=== PATIENT | female | born 1980 | race Two or more races ===

== ENCOUNTER 2020-02-12 07:55 | Inpatient (IN) | payer OTHER ==
[2020-02-09 12:16] VITALS: BMI 21.6
[2020-02-12] MEDS ORDERED: ROCURONIUM BROMIDE 50 MG/5 ML SYRINGE ONE (09:32)
[2020-02-12] MEDS ORDERED: fentaNYL CITRATE 250 MCG/5 ML VIAL ONE (09:32)
[2020-02-12] MEDS ORDERED: MIDAZOLAM HCL 2 MG/2 ML SINGLE DOSE VIAL ONE ×2 (09:32)
[2020-02-12] MEDS ORDERED: PROPOFOL 20 ML ONE (09:32)
[2020-02-12] MEDS ORDERED: DEXAMETHASONE SOD PHOSPHATE/PF 10 MG/ML SDV ONE (09:34)
--- NOTE | 2020-02-12 09:46 | HP ---
Admitting History and Physical - Admission Chief Complaint: HMB/DUB History of Present Illness: 39yo here for MASTER, salpingectomy H/O HMB, diagnosed with uterine fibroids this year Given option of hormonal regulation, [place] and definitive treatment with hysterectomy (as she desires no more children). Pt declined non definitive treatments and asked for hysterectomy History Source: Patient - Past Medical History STONE UNLOADER: No: Alzheimer's, CVA, Dementia, Migraine, Multiple Sclerosis, Peripheral Neuropathy, Parkinson's, Seizure, Syncope, TIA, Vertigo, Other Cardiovascular: No: AFIB, Aneurysm, Aortic Insufficiency, Aortic Stenosis, CAD, CHF, Deep Vein Thrombosis, HTN, Hyperlipdemia, MO, Mitral Insufficiency, Mitral Stenosis, Murmur, Pulmonary Hypertension, Other Pulmonary: No: Asthma, Bronchitis, Cancer, COPD, O2 Dependent, Pneumonia, Previously Intubated, Pulmonary Embolus, Pulmonary Fibrosis, Sleep Apnea, Other Gastrointestinal: No: Ascites, Cancer, Constipation, Crohn's Disease, Diverticulitis, Diverticulosis, Esophageal Varices, Gastritis, GERD, GI Bleed, Hemorrhoids, Hiatal Hernia, Inflamatory Bowel Disease, Irritable Bowel Disease, Pancreatitis, Peptic Ulcer Disease, Ulcerative Colitis, Other Hepatobiliary: No: Cirrhosis, Cholelithiasis, Cholecystitis, Choledocholithiasis, Hepatitis A, Hepatitis B, Hepatitis C, Other Renal/: No: Renal Failure, Renal Inusuff, BPH, Cancer, Hematuria, Hemodialysis, Neurogenic Bladder, Renal Calculi, UTI, Other Reproductive: No: Ectopic , Endometriosis, Fibroids, PID, Polycystic Ovary Syndrome, Postmenopausal, Other ...LMP: 01/24/20 ...: No Heme/Onc: Yes: Anemia Infectious Disease: No: AIDS, C-Diff, Herpes Zoster, HIV, MRSA, STD's, Tuberculosis, VREF, Other Psych: No: Addictions, Anxiety, Bipolar, Depression, Panic, Psychosis, Schizophrenia, Other Musculoskeletal: No: Bursitis, Chronic low back pain, Hemiparesis, Hemiplegia, Osteoarthritis, Paraplegia, Other Rheumatology: No: Fibromyalgia, Gout, Lupus, Rheumatoid Arthritis, Sarcoidosis, Vasculitis, Other ENT: No: Allergic Rhinitis, Sinusitis, Other Endocrine: No: [place]'s Disease, [place]'s Disease, Diabetes Insipidus, Diabetes Mellitus, Hyperparathyroidism, Hyperthyroidism, Hypothyroidism, Osteopenia, SIADH, Other Dermatology: No: Basal Cell, Cellulitis, Eczema, Melanoma, Psoriasis, Squamous Cell, Other - Past Surgical History Past Surgical History: Yes: - Smoking History Smoking history: Never smoked Have you smoked in the past 12 months: No - Alcohol/Substance Use Hx Alcohol Use: No History of Substance Use: reports: None - Social History Usual Living Arrangement: Yes: Alone Do you think of yourself as: Straight/Heterosexual ADL: Independent History of Recent Travel: No Home Medications - Allergies Allergies/Adverse Reactions: Allergies Allergy/AdvReac Type Severity Reaction Status Date / Time No Known Allergies Allergy Verified 02/12/20 08:30 - Home Medications Home Medications: Ambulatory Orders Ascorbic Acid [Vitamin C] 500 mg PO DAILY 02/09/20 Calcium Carbonate [Calcium] 500 mg PO DAILY 02/09/20 Cholecalciferol (Vitamin D3) [Vitamin D3 -] 400 unit PO DAILY 02/09/20 Glucosa García 2Kcl/Chondroitin García [Glucosamine & Chondroitin Cap] 1 each PO DAILY 02/09/20 Review of Systems - Review of Systems Constitutional: reports: No Symptoms Cardiovascular: reports: No Symptoms Respiratory: reports: No Symptoms Gastrointestinal: reports: No Symptoms Physical Examination Vital Signs: Vital Signs Temperature 97.8 F 02/12/20 08:29 Pulse Rate 94 H 02/12/20 08:29 Respiratory Rate 20 02/12/20 08:29 Blood Pressure 131/64 02/12/20 08:29 O2 Sat by Pulse Oximetry (%) 100 02/12/20 08:29 Constitutional: Yes: Well Nourished, No Distress, Calm Cardiovascular: Yes: WNL, Regular Rate and Rhythm Respiratory: Yes: WNL, Regular, CTA Bilaterally Gastrointestinal: Yes: WNL, Normal Bowel Sounds Renal/: Yes: Other (Enlarged uterus 18wk size, midlie and mobile) Edema: No Imaging - Results Ultrasound: Report Reviewed Assessment/Plan 39yo here with HMB/DUB and uterine fibroids Admit NPO, IVFs Cifuentes Ancef Risks reviewed with patient including bleeding, infection, and injury to bladder/bowel/ureters, ovaries. All questions answered in Georgian. Consents signed Proceed to OR for MASTER, b/l salpingectomy Jim Brown MD
[2020-02-12] MEDS ORDERED: ceFAZolin SODIUM 1 GM VIAL ONE (10:13)
[2020-02-12] MEDS ORDERED: DEXAMETHASONE SOD PHOSPHATE 4 MG/1 ML VIAL ONE (10:13)
[2020-02-12] MEDS ORDERED: EPHEDRINE SULFATE/0.9% NACL/PF 50 MG/10 ML SYRINGE NR ONE (11:12)
[2020-02-12] MEDS ORDERED: ceFAZolin SODIUM 1 GM VIAL IVPB ONE (11:44)
[2020-02-12] MEDS ORDERED: KETOROLAC TROMETHAMINE 30 MG/1 ML VIAL ONE (11:53)
[2020-02-12] MEDS ORDERED: NEOSTIGMINE METHYLSULFATE 0.5 MG/ML - 10 ML MDV ONE (11:55)
[2020-02-12] MEDS ORDERED: GLYCOPYRROLATE 0.2 MG/1 ML VIAL ONE (11:56)
[2020-02-12] MEDS ORDERED: BENZOIN/ALOE VERA/STORAX/TOLU 58 ML BOTTLE ONE (12:02)
--- NOTE | 2020-02-12 12:40 | OP ---
Operative Note - Note: Operative Date: 02/12/20 Pre-Operative Diagnosis: Heavy Menstrual Bleeding/DUB, Uterine Fibroids Operation: Total Abdominal Hysterectomy, Bilateral Salpingectomy Findings: Enlarged fibroid uterus, normal tubal segments bilaterally with small paratubal cyst on R fallopian tube, normal ovaries bilaterally Surgeon: Ana Luisa Brown Leak Patcher: Samir Hendrickson Anesthesiologist/BUSINESS DEAN: Deepthi Lemon Anesthesia: General Specimens Removed: Fibroid uterus and cervix, B/L fallopian tube segments Estimated Blood Loss (mls): 200 Drains, Volume Out (mls): 650 (clear urine) Operative Report Dictated: Yes
[2020-02-12] MEDS ORDERED: oxyCODONE HCL 5 MG TABLET PO PRN (12:41)
[2020-02-12] MEDS ORDERED: ACETAMINOPHEN 325 MG TABLET (FP) PO PRN (12:41)
[2020-02-12] MEDS ORDERED: ONDANSETRON 4 MG/2 ML VIAL IVPUSH PRN (12:47)
[2020-02-12] MEDS ORDERED: HYDROmorphone *PCA* 10MG/50ML DISP.SYRIN PCA SCH (13:00)
[2020-02-12] MEDS ORDERED: LACTATED RINGERS SOLUTION 1,000 ML IV SCH (13:00)
[2020-02-12] MEDS ORDERED: HYDROmorphone *PCA* 10MG/50ML DISP.SYRIN PCA ONE (13:15)
[2020-02-13 08:00] LABS: BASO % 0.1 % (0-2.0); HEMATOCRIT 28.9 % (32.4-45.2); HEMOGLOBIN 9.7 GM/dL (10.7-15.3); LYMPH % 6.6 % (8-40); MCH 26.3 pg (25.7-33.7); MCHC 33.6 g/dl (32.0-36.0); MEAN CELL VOLUME 78.2 fl (80-96); MEAN PLT VOLUME 9.3 fl (7.5-11.1); MONO % 8.2 % (3.8-10.2); NEUT % 85.1 % (42.8-82.8); PLATELET COUNT 299 K/MM3 (134-434); RDW 17.2 % (11.6-15.6); WHITE BLOOD COUNT 13.8 K/mm3 (4.0-10.0)
[2020-02-13] MEDS ORDERED: PCA PUMP NR ONE (08:54)
--- NOTE | 2020-02-13 09:39 | PN ---
Progress Note, Physician History of Present Illness: Out of bed in chair, pain controlled, no nausea, no vomiting, beal is out. Post-op instructions reviewed. - Current Medication List Current Medications: Active Medications Acetaminophen (Tylenol -) 650 mg PO Q6H PRN PRN Reason: FEVER Fentanyl (Sublimaze Injection -) 50 mcg IVPUSH [id number] PRN PRN Reason: PAIN-PACU ORDER X 4 DOSES ONLY Ibuprofen (Motrin -) 600 mg PO Q6H PRN PRN Reason: PAIN 1-3 Ondansetron HCl (Zofran Injection) 4 mg IVPUSH Q6H PRN PRN Reason: NAUSEA AND/OR VOMITING Oxycodone HCl (Roxicodone -) 5 mg PO Q6H PRN PRN Reason: PAIN LEVEL 7 - 10 - Objective Vital Signs: Vital Signs Temperature 100.2 F H 02/13/20 05:52 Pulse Rate 111 H 02/13/20 05:52 Respiratory Rate 20 02/13/20 05:52 Blood Pressure 112/55 L 02/13/20 05:52 O2 Sat by Pulse Oximetry (%) 99 02/13/20 05:52 Constitutional: Yes: Well Nourished, No Distress HENT: Yes: Atraumatic Neck: Yes: Supple Cardiovascular: Yes: Regular Rate and Rhythm Respiratory: Yes: Regular Gastrointestinal: Yes: Normal Bowel Sounds, Soft ...Rectal Exam: Yes: Other Genitourinary: Yes: Other Musculoskeletal: Yes: WNL Extremities: Yes: WNL Edema: Yes Edema: LLE: Trace, RLE: Trace Integumentary: Yes: WNL Wound/Incision: Yes: Clean/Dry, Well Approximated, Sutures Intact Neurological: Yes: Alert, Oriented ...Motor Strength: WNL Psychiatric: Yes: Alert, Oriented Labs: CBC, BMP 02/13/20 07:13 Problem List - Problems (1) Leiomyoma Code(s): D21.9 - BENIGN NEOPLASM OF CONNECTIVE AND OTHER SOFT TISSUE, UNSP Assessment/Plan 39 y/o on POD #1 S/P TAHBS in stable condition. 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 Intra-op findings discussed with patient. -Encourage ambulation -PO pain control -Continue post-op care
[2020-02-13] MEDS: oxyCODONE HCL 5 MG TABLET PO PRN ×3 (10:02→22:36)
--- NOTE | 2020-02-13 11:00 | PN ---
Progress Note (short form) - Note Progress Note: Anesthesia postop note 39 y/o F s/p GA/TAP/JIG HAND for abdominal hysterectomy POD#1, vss, aaox3, air transport professionals off, pain well controlled, no complaints. No anesthesia complications.
[2020-02-13] MEDS: IBUPROFEN 600 MG TABLET (FP) PO PRN (20:02)
[2020-02-14] MEDS: IBUPROFEN 600 MG TABLET (FP) PO PRN ×3 (02:12→17:44)
[2020-02-14] MEDS: oxyCODONE HCL 5 MG TABLET PO PRN ×2 (06:06→15:31)
[2020-02-14 11:48] VITALS: PULSE 96
[2020-02-14 13:36] VITALS: BP 106/73; TEMP 98.7
--- NOTE | 2020-02-14 14:05 | PN ---
Progress Note, Physician Chief Complaint: S/P AMSTER - Current Medication List Current Medications: Active Medications Acetaminophen (Tylenol -) 650 mg PO Q6H PRN PRN Reason: FEVER Fentanyl (Sublimaze Injection -) 50 mcg IVPUSH [id number] PRN PRN Reason: PAIN-PACU ORDER X 4 DOSES ONLY Ibuprofen (Motrin -) 600 mg PO Q6H PRN PRN Reason: PAIN 1-3 Last Admin: 02/14/20 11:00 Dose: 600 mg Documented by: Ondansetron HCl (Zofran Injection) 4 mg IVPUSH Q6H PRN PRN Reason: NAUSEA AND/OR VOMITING Last Admin: 02/13/20 12:09 Dose: 4 mg Documented by: Oxycodone HCl (Roxicodone -) 5 mg PO Q6H PRN PRN Reason: PAIN LEVEL 7 - 10 Last Admin: 02/14/20 06:06 Dose: 5 mg Documented by: - Objective Vital Signs: Vital Signs Temperature 98.7 F 02/14/20 13:35 Pulse Rate 96 H 02/14/20 13:35 Respiratory Rate 18 02/14/20 13:35 Blood Pressure 106/73 02/14/20 13:35 O2 Sat by Pulse Oximetry (%) 97 02/14/20 13:35 Constitutional: No: Well Nourished, No Distress, Calm, Anxious, Ashen, Cachectic, Diaphoresis, Mild Distress, Moderate Distress, Severe Distress, Obese, Pallor, Poor Hygeine, Thin, Other Gastrointestinal: Yes: Soft, Other (Appropriately tender, incision c/d/i) Edema: No Peripheral Pulses WNL: Yes Labs: CBC, BMP 02/13/20 07:13 Problem List - Problems (1) Leiomyoma Code(s): D21.9 - BENIGN NEOPLASM OF CONNECTIVE AND OTHER SOFT TISSUE, UNSP Assessment/Plan 39yo s/p MASTER, salpingectomy, POD#2 Doing well Routine postoperative care PO pain control Labs reviewed, stable Advance diet to regular Plan to d/c to home this evening after dinner Will f/u in 7 days for postoperative check Jim Brown MD
--- NOTE | 2020-02-14 14:06 | DS ---
Physical Examination Vital Signs: Vital Signs Temperature 98.7 F 02/14/20 13:35 Pulse Rate 96 H 02/14/20 13:35 Respiratory Rate 18 02/14/20 13:35 Blood Pressure 106/73 02/14/20 13:35 O2 Sat by Pulse Oximetry (%) 97 02/14/20 13:35 Constitutional: Yes: Well Nourished, No Distress, Calm Eyes: Yes: WNL, Conjunctiva Clear, EOM Intact HENT: Yes: WNL, Atraumatic, Normocephalic Neck: Yes: WNL, Supple, Trachea Midline Cardiovascular: Yes: WNL, Regular Rate and Rhythm Respiratory: Yes: WNL, Regular, CTA Bilaterally Gastrointestinal: Yes: WNL, Normal Bowel Sounds Musculoskeletal: Yes: WNL Extremities: Yes: WNL Edema: No Integumentary: Yes: WNL Neurological: Yes: WNL, Alert, Oriented ...Motor Strength: WNL Psychiatric: Yes: WNL Labs: CBC, BMP 02/13/20 07:13 Discharge Summary Problems reviewed: Yes Reason For Visit: UTERINE FIBROIDS Current Active Problems Leiomyoma (Acute) Procedures: Principal: MSATER, b/l salpingectomy Hospital Course: Patient presented for a scheduled Abdominal Hysterectomy She had an uncomplicated course She met all postoperative milestones She was discharged home on POD#2 Jim Brown MD Condition: Stable - Instructions Diet, Activity, Other Instructions: Regular Diet Follow up in 7 days for your post-operative visit Referrals: Ana Luisa Brown MD [Staff Physician] - Disposition: HOME - Home Medications Comprehensive Discharge Medication List: Ambulatory Orders Ascorbic Acid [Vitamin C] 500 mg PO DAILY 02/09/20 Calcium Carbonate [Calcium] 500 mg PO DAILY 02/09/20 Cholecalciferol (Vitamin D3) [Vitamin D3 -] 400 unit PO DAILY 02/09/20 Glucosa García 2Kcl/Chondroitin García [Glucosamine & Chondroitin Cap] 1 each PO DAILY 02/09/20 Ibuprofen 600 mg PO Q6H PRN #30 tablet 02/12/20 Oxycodone HCl/Acetaminophen [Percocet 5-325 mg Tablet -] 1 - 2 tab PO Q6H PRN #20 tab MDD 4 02/12/20
--- NOTE | 2020-02-15 15:11 | OP ---
DATE OF OPERATION: 02/12/2020 PREOPERATIVE DIAGNOSIS: Heavy menstrual bleeding, dysfunctional uterine bleeding, uterine fibroids. POSTOPERATIVE DIAGNOSIS: Heavy menstrual bleeding, dysfunctional uterine bleeding, uterine fibroids. PROCEDURE: Total abdominal hysterectomy, bilateral salpingectomy. ANESTHESIA: General. SURGEON: Ana Luisa Brown MD TYRE FITTER: Samir Hendrickson MD IV FLUIDS: Per Anesthesia record. ESTIMATED BLOOD LOSS: 400 URINE OUTPUT: 650 mL of clear urine at the end of the procedure. FINDINGS: Enlarged fibroid uterus with 2 dominant fundal fibroids noted, normal cervix, bilateral fallopian tube segments, normal ovaries bilaterally. COMPLICATIONS: None. CONDITION: Stable to recovery room. NATURE OF THE PROCEDURE: After the appropriate consents were signed, patient was taken to the operating room. She was placed in the supine position. She was given general anesthesia. The abdomen was then prepped and draped in a normal sterile fashion. A sterile Cifuentes catheter was inserted into the bladder. A timeout was performed confirming correct patient and procedure. A Pfannenstiel incision was made through her previous incision and carried through to the underlying layers until the fascia was nicked in the midline. The fascia was then extended laterally with the Vann scissors. The inferior aspect of the fascia was grasped with the Bola clamps, tented upwards and the rectus muscle was dissected off bluntly with the Vann scissors. Attention was then paid to the superior aspect which was taken down in a similar fashion. The muscles of the anterior abdominal wall were in the midline with blunt and sharp dissection. The peritoneum was then grasped between 2 hemostats, elevated and entered sharply with the Metzenbaums after transillumination. The peritoneum was then extended manually. The pelvis was examined with the findings as noted above. The patient's uterus was then exteriorized to allow for visualization. The bowel was packed away posteriorly with moist laparotomy sponges. The round ligaments on both sides were clamped, transected with the LigaSure device and suture ligated with a 0 Vicryl. The anterior leaf of the patient's broad ligament was then incised with the Metzenbaums along the bladder reflection down to the midline from both sides. The bladder was then gently dissected off the lower uterine segment and cervix with a sponge stick. Good hemostasis was noted. The IP ligaments on both sides were then doubly clamped, transected and suture ligated with a 0 Vicryl. They were ligated with the LigaSure device. Hemostasis was visualized. The uterine arteries were then skeletonized bilaterally and clamped with the Jose David clamps, transected and suture ligated with 0 Vicryl. Hemostasis was then noted. Subsequent bites after placement of the Jose David along the cervix down to the os were taken with hemostasis achieved at each bite. The cervix and then uterus were then amputated with the Vann scissors and passed off for pathology. The vaginal cuff angles were closed with a [id number] suture with 0 Vicryl and the remainder of the vaginal cuff was closed in a series of [id number] sutures with a 0 Vicryl. Hemostasis was noted. The pelvis was irrigated copiously with normal saline. The bite sites were inspected and incision points. There were noted to bilateral small fimbriated tubal segments left and right which were subsequently removed with the LigaSure device at their insertion points. Hemostasis was noted at the bite sites. Abdomen was then irrigated again, noted to be clear fluid. No bleeding was noted from those bite sites. All laparotomy and sponges and instruments were removed from the abdomen. The fascia was closed with a 0 Vicryl. Subcutaneous tissue was closed with a 2-0 plain. Skin was closed with a 3-0 Monocryl. All sponge, lap, needle counts were correct x3. The patient did receive Ancef at the start of the procedure. She was taken from the operating room to the recovery area in stable condition. MD ZULMA BREWER/[id number]
--- NOTE | 2020-02-16 18:40 | PATH ---
Surgical Pathology Report Patient Name: ALEJANDRO CHARLES [facility]. Rec. #: [id number] /Age/Gender: 1980 (Age: 39) / F Account: [id number] Location: [address] [place] [address]/[facility] Taken: 02/12/2020 Received: 02/12/2020 Reported: 02/16/2020 Physicians: Ana Luisa Brown Specimen(s) Received A: SEGMENT OF LEFT FALLOPIAN TUBE B: UTERUS AND CERVIX C: SEGMENT OF RIGHT FALLOPIAN TUBE Clinical History Uterine fibroids Final Diagnosis A. SEGMENT OF FALLOPIAN TUBE, LEFT, EXCISION: FALLOPIAN TUBE WITH PARATUBAL CYSTS (INCLUDING FIMBRIATED END AND FULL LUMINAL PORTION). B. UTERUS AND CERVIX, TOTAL ABDOMINAL HYSTERECTOMY: 814 G UTERUS. LEIOMYOMA(TA), SUBSEROSAL AND INTRAMURAL. SECRETORY ENDOMETRIUM. MYOMETRIUM WITH ADENOMYOSIS. CERVIX WITHOUT SIGNIFICANT PATHOLOGIC FINDINGS. C. SEGMENT OF FALLOPIAN TUBE, RIGHT, EXCISION: FALLOPIAN TUBE WITH PARATUBAL CYST (INCLUDING FIMBRIATED END AND FULL LUMINAL PORTION). Electronically Signed Torrie Gomez M.D. Gross Description A. Received in formalin labeled "segment of left fallopian tube," is a 3 cm in length fimbriated portion of fallopian tube. The outer surface is mccarthy-rosario and smooth with multiple attached paratubal cysts. Sectioning reveals an unremarkable lumen. [facility] sections are submitted in 2 cassettes as follows: 1-fimbria; 2-cross sections of fallopian tube and paratubal cysts. B. Received in formalin labeled "uterus and cervix" is an 814 g uterus with an attached cervix and no attached adnexa. The specimen measures 15.5 cm from superior to inferior, 12 cm from left to right and 10 cm from anterior to posterior. The serosa is mccarthy-stahl and smooth with multiple bulging subserosal nodules. The attached cervix measures 4.5 cm in length and averages 2.5 cm in diameter. The ectocervix is mccarthy, smooth and glistening. The endocervix is unremarkable. The endometrial cavity measures 8 cm in length and averages 2.5 cm from cornu to cornu. The endometrium is mccarthy-red and measures up to 0.3 cm in thickness. The myometrium displays abundant intramural nodules, measuring up to 7 cm in greatest dimension. The cut surface of the nodules is mccarthy and rubbery with whorled architecture. No areas of hemorrhage or necrosis are identified. The remaining myometrium is mccarthy-pink and measures up to 5 cm in thickness. [facility] sections are submitted in 13 cassettes as follows: 1-anterior cervix; 2-posterior cervix; 8-8-mqhqvhwb endomyometrium; 9-8-elgjhykhh endomyometrium; 7-subserosal nodules; 5-70-llsxtqrdrc nodules; 50-23-zbwduwy intramural nodule. C. Received in formalin labeled "segment right fallopian tube," is a 4 cm in length fimbriated portion of fallopian tube. The outer surface is mccarthy stahl and smooth with a 1.3 cm greatest dimension paratubal cyst attached. Sectioning reveals an unremarkable lumen. [facility] sections are submitted in 2 cassettes as follows: 1-fimbria; 2-cross sections of fallopian tube and paratubal cyst. 02/13/2020 [facility]02/13/2020
== END 2020-02-14 18:12 | disposition home or self-care (01) | DRG 519 ==
LOC: J2C 07:55 → UNDOADMIN 09:27 → J2C 09:27 → J6S 17:43
PROVIDERS: ADMIT Obstetrics & Gynecology; ATTEND Obstetrics & Gynecology
PROC: 0UT70ZZ Resection of Bilateral Fallopian Tubes, Open Approach (ICD-10-PCS; 2020-02-12)
PROC: 0UT90ZZ Resection of Uterus, Open Approach (ICD-10-PCS; principal; 2020-02-12 10:00)
DX: D25.9 Leiomyoma of uterus, unspecified (principal); N83.8 Other noninflammatory disorders of ovary, fallopian tube and broad ligament
CPT/HCPCS: 36415; 84703; 85025; 86850; 86900; 86901; 86922; 88302-TC; 88307-TC; 94010; 94760